=== PATIENT | female | born 1960 | race Caucasian/White ===

== ENCOUNTER 2017-03-23 07:47 | Day surgery (SDC) | payer BC ==
[2017-03-23] MEDS ORDERED: LACTATED RINGERS 1,000 ML IV.SOLN IV ONE (08:00)
[2017-03-23] MEDS ORDERED: SALINE FLUSH 10 ML DISP.SYRIN IVF ONE (08:00)
[2017-03-23] MEDS ORDERED: PROPOFOL 500 MG/50 ML VIAL IV ONE (08:00)
--- NOTE | 2017-03-24 09:06 | Operative Note ---
SURGEON: Nikko Lacy MD ANESTHESIA: MAC anesthesia. ESTIMATED BLOOD LOSS: None. COMPLICATIONS: None. PREOPERATIVE DIAGNOSIS: Screening colonoscopy. POSTOPERATIVE DIAGNOSIS: Transverse colon polyp. PROCEDURE PERFORMED: Colonoscopy with snare polypectomy. INDICATIONS FOR PROCEDURE: This is a 56-year-old woman who presents for a screening colonoscopy. DESCRIPTION OF PROCEDURE: Patient was brought to the endoscopy suite and placed in the left lateral decubitus position. Anesthesia was administered by the flagstone layer. A rectal examination was performed which was normal. The colonoscope was inserted and passed easily to the cecum. The appendiceal orifice and ileocecal valve were identified. The prep was very good. The colonoscope was slowly retracted being careful to inspect all diaz. Greater than a 6-minute withdrawal time was done. In the distal transverse, there was a flat polyp measuring approximately 1.5 cm. It was removed completely piecemeal with a cold snare. There was no bleeding following the procedure. The colonoscope was completely removed. There were no other polyps or lesions seen. The patient tolerated the procedure well. FINDINGS: Flat polyp measuring approximately 1.5 cm in the transverse colon completely removed piecemeal with a cold snare. DISPOSITION: I recommend repeat colonoscopy in 1 year due to the piecemeal nature of the removal. cc: Dr. Jeanette ESPAÑA
== END 2017-03-23 07:50 ==
LOC: OPSURG 07:47
PROVIDERS: ATTEND Colon & Rectal Surgery
DX: Z12.11 Encounter for screening for malignant neoplasm of colon (principal); D12.3 Benign neoplasm of transverse colon
CPT/HCPCS: J2704; J7120; 45385; S1016

== ENCOUNTER 2017-05-24 20:19 | Emergency (ER) | payer BC ==
[2017-05-24 20:36] VITALS: BP 147/91
[2017-05-24] MEDS: cefTRIAXone SODIUM 1 GM in 0.9 % SODIUM CHLORIDE 50 ML IV ONE (20:45)
[2017-05-24] MEDS: Lidocaine 1% 5ml(IM or SUTURE)(PAIN CLINIC) IJ ONE (20:45)
[2017-05-24] MEDS: KETOROLAC TROMETHAMINE 60 MG/2 ML VIAL IM ONE (20:45)
--- NOTE | 2017-05-24 20:50 | ED Physician Documentation ---
Sore Throat/Dental Pain - HISTORIAN Historian: patient - HPI Stated Complaint: Rt lower jaw swelling Chief Complaint: Dental Pain Onset: hours (this morning) Context: Fractured Tooth, Abscess, Dental Caries Further Comments: yes (56 year old female patient presents with right lower mandibular edema. Patient states the edema started this morning. C/O pain, has not taken any OTC medication [employer].) - ROS CONST: no problems CVS/RESP: none GI/: denies: nausea, vomiting MS/SKIN/LYMPH: denies: muscle aches, rash, leg swelling, ankle swelling, other NEURO/PSYCH: none - PAST HX Past History: gum disease Other History: other (anemia) Allergies/Adverse Reactions: Allergies Allergy/AdvReac Type Severity Reaction Status Date / Time Penicillins AdvReac Intermediate Rash Verified 05/24/17 20:37 Home Medications: Ambulatory Orders Medication Instructions Recorded Ferrous Sulfate [Iron] 325 mg PO BID u2 02/28/17 Clindamycin HCl [Cleocin] 300 mg PO QID #28 capsule 05/24/17 - SOCIAL HX Smoking History: cigarettes - FAMILY HX Family History: No - VITAL SIGNS Vital Signs: Vital Signs Temp Pulse Resp BP Pulse Ox 97.1 F L 82 16 147/91 96 05/24/17 20:19 05/24/17 20:19 05/24/17 20:19 05/24/17 20:19 05/24/17 20:19 - REVIEWED ASSESSMENTS Nursing Assessment Reviewed: Yes Vitals Reviewed: Yes ED Results Lab/Radiology - Orders Orders: ED Orders Category Date Time Status Ketorolac Tromethamine [Toradol] Med 05/24/17 20:46 Once 60 mg IM NOW ONE Lidocaine 1% 5ml(IM or SUTURE) [Xylocaine] Med 05/24/17 20:43 Once 50 mg IJ NOW ONE cefTRIAXone SODIUM [Rocephin] 1 gm Med 05/24/17 20:43 Ordered 0.9 % Sodium Chloride [Sodium Chloride] 50 ml IV NOW Dental Pain Physical Exam - EXAM General Appearance: mild distress Head/Neck: head nml inspection, trachea midline, no lymphadenopathy, thyroid nml , neck nml inspection Mouth/Throat: lips nml, pharynx nml, voice nml, no air way problems, dental tenderness, gum swelling around teeth (right lower jaw edema; decay to gumline in part of fractured tooth, fractured teeth #44 and #45), widespread dental decay Respiratory: no resp. distress CVS: reg. rate & rhythm Extremities: non-tender Skin: warm/dry Neuro/Psych: No: weakness Discharge Clincal Impression: Dental abscess Prescriptions: Clindamycin HCl [Cleocin] 300 mg PO QID #28 capsule Referrals: Jeanette Cunningham MD [Primary Care Provider] - 2 Days Condition: Stable Disposition: 01 HOME, SELF-CARE Decision to Admit: NO Decision Time: 20:50
== END 2017-05-24 21:00 | disposition home or self-care (01) ==
LOC: ED 20:19
DX: K04.7 Periapical abscess without sinus (principal)
CPT/HCPCS: J0696; J1885; 96374; 96375; 99283

== ENCOUNTER 2018-02-09 13:51 | Outpatient (CLI) | payer BC ==
[2018-02-09 14:11] LABS: BASOPHILS % 0.4 (0.0-1.5); EOSINOPHILS % 3.2 % (0.0-6.8); MEAN CORPUSCULAR HEMOGLOBIN 24.9 pg (28.0-34.0); MEAN CORPUSCULAR VOLUME 83.4 fl (80.0-100.0); MONOCYTES % 5.3 % (0.0-11.0)
[2018-02-09 14:25] LABS: eGFR (African) > 60; eGFR (Non-African) > 60
--- NOTE | 2018-02-09 17:55 | Diagnostic Imaging Report ---
LYNDA BAILEY [facility] [address] [facility] [address] [address] Report Submission Date: Feb 09, 2018 2:34:57 PM CDT Patient Study Name: BIRD FLYNN Date: Feb 09, 2018 2:03:07 PM CDT Modality Type: DX Gender: F Description: CHEST : 62 Institution: [facility] Physician: LYNDA BAILEY Examination: PA and lateral chest. History: CXR, POSTERIOR CHEST PAIN SINCE YESTERDAY (Hx) Comparison exam: None provided. Findings: PA lateral chest demonstrate a normal cardiac and mediastinal silhouette. Mildly tortuous aorta. No focal infiltrate. No blunting of the costophrenic margins. Osseous structures are appropriate for age. Impression: No acute pulmonary process. Electronically signed on Feb 09, 2018 2:34:57 PM CDT by: Robert ESPAÑA
== END 2018-02-09 13:52 ==
LOC: LAB 13:51
PROVIDERS: ATTEND Physician Assistant
DX: R07.9 Chest pain, unspecified (principal); D50.9 Iron deficiency anemia, unspecified; E03.9 Hypothyroidism, unspecified
CPT/HCPCS: 36415; 71046; 80053; 84443; 84484; 85025

== ENCOUNTER 2018-04-27 10:40 | Outpatient (CLI) | payer BC ==
[2018-04-27 13:28] LABS: MEAN CORPUSCULAR HEMOGLOBIN 25.4 pg (28.0-34.0); MEAN CORPUSCULAR VOLUME 82.7 fl (80.0-100.0)
--- NOTE | 2018-04-27 19:43 | Diagnostic Imaging Report ---
LYNDA BAILEY [facility] [address] [facility] [address] [address] Report Submission Date: Apr 27, 2018 11:16:43 AM CDT Patient Study Name: BIRD FLYNN Date: Apr 27, 2018 10:55:27 AM CDT Modality Type: DX Gender: F Description: LOWER EXTREMITY : 62 Institution: [facility] Physician: LYNDA BAILEY Examination: Plain film right foot History: RT FOOT, PAIN/NODULE IN RT LATERAL FOOT X3 WEEKS, WORSENING, NO KNOWN INJURY (Hx) Findings: 3 views of the right foot demonstrates normal cortical margins. No fracture or dislocation. No soft tissue swelling. No joint effusion. Impression: No acute osseous process. If suspect soft tissue lesion, consider obtaining MRI to further evaluate. Electronically signed on Apr 27, 2018 11:16:43 AM CDT by: Robert ESPAÑA
== END 2018-04-27 12:06 ==
LOC: LAB 10:40
PROVIDERS: ATTEND Family Medicine
DX: M79.671 Pain in right foot (principal); D50.9 Iron deficiency anemia, unspecified; E03.9 Hypothyroidism, unspecified
CPT/HCPCS: 36415; 73630; 84439; 84443; 84481; 85027